=== PATIENT | male | born 1970 | race American Indian/Alaskan Native ===

== ENCOUNTER 2017-03-29 14:38 | Emergency (ER) | payer SELFPAY ==
--- NOTE | 2017-03-29 15:57 | XRay Report ---
LUMBOSACRAL SPINE, 3 VIEWS: History: Back pain, injury Findings: The vertebral bodies, disk spaces and posterior elements are intact. No compression deformity or malalignment. Mild multilevel degenerative disc disease is identified. The SI joints are symmetric and unremarkable. Impression: Mild lumbar spondylosis. No evidence for acute injury to the lumbar spine.
--- NOTE | 2017-03-29 15:57 | XRay Report ---
LEFT HAND, 3 views: History: Laceration. The bony architecture is intact. Bony alignment is normal. No soft tissue abnormalities are seen. The joint spaces appear preserved. IMPRESSION: Normal left hand.
[2017-03-29] MEDS ORDERED: MORPHINE IM ONE (16:37)
[2017-03-29] MEDS ORDERED: ZOFRAN ODT PO ONE (16:37)
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
[2017-03-29] MEDS ORDERED: DILAUDID IM ONE (17:49)
[2017-03-29] MEDS ORDERED: BOOSTRIX IM ONE (17:54)
[2017-03-29 18:14] LABS: Bilirubin,Urine NEG (Negative); Blood,Urine NEG (Negative); Ketones,Urine NEG (Negative); Leukocyte Esterase,Urine NEG (Negative); Nitrite,Urine NEG (Negative); Protein,Urine <15 mg/dL mg/dL (Negative); Urobilinogen,Urine < 2.0 mg/dL (<2.0)
[2017-03-29 18:35] VITALS: BP 137/71
== END 2017-03-29 18:46 | disposition home or self-care (01) ==
LOC: ED 14:38
DX: S61.213A Laceration without foreign body of left middle finger without damage to nail, initial encounter (principal); M54.5 Low back pain; F17.200 Nicotine dependence, unspecified, uncomplicated; V89.9XXA Person injured in unspecified vehicle accident, initial encounter; Y93.89 Activity, other specified; Y92.89 Other specified places as the place of occurrence of the external cause; Y99.8 Other external cause status
CPT/HCPCS: 12001; 72100; 73130; 81001; 90471; 90715; 96372; 99284; J1170; J2270; Q0162

== ENCOUNTER 2017-07-13 16:16 | Emergency (ER) | payer SELFPAY ==
[2017-07-13] MEDS ORDERED: DILAUDID IV ONE ×3 (17:03→20:45)
[2017-07-13] MEDS ORDERED: XYLOCAINE 1% 20 mL INFILTRATI ONE (17:03)
[2017-07-13] MEDS ORDERED: NACL 0.9% 500 ML 500 ML IV ONE (17:04)
--- NOTE | 2017-07-13 17:05 | Emergency Department Report ---
ED Lower Extremity HPI - General Chief Complaint: Extremity Injury, Lower Stated Complaint: ANKLE PAIN Time Seen by Provider: 07/13/17 16:45 Source: patient Mode of arrival: Ambulatory Limitations: No Limitations - History of Present Illness MD Complaint: foot injury - Related Data Previous Rx's Medication Instructions Recorded Last Taken Type Acetaminophen/Codeine [Tylenol #3] 1 tab PO Q6H PRN #12 tab 03/29/17 Unknown Rx methOCARBAMOL [Robaxin TAB] 500 mg PO Q6H PRN #15 tablet 03/29/17 Unknown Rx Allergies Allergy/AdvReac Type Severity Reaction Status Date / Time No Known Allergies Allergy Unverified 03/29/17 15:14 ED Review of Systems ROS: Stated complaint: ANKLE PAIN Other details as noted in HPI ED Past Medical Hx - Past Medical History Previous Medical History?: Yes Hx Hypertension: Yes Additional medical history: right kidney transplant-2012 - Surgical History Past Surgical History?: Yes Additional Surgical History: right kidney transplant-2012 - Social History Smoking Status: Current Every Day Smoker Substance Use Type: Alcohol, Marijuana - Medications Home Medications: Home Medications Medication Instructions Recorded Confirmed Last Taken Type Acetaminophen/Codeine [Tylenol #3] 1 tab PO Q6H PRN #12 tab 03/29/17 Unknown Rx methOCARBAMOL [Robaxin TAB] 500 mg PO Q6H PRN #15 tablet 03/29/17 Unknown Rx ED Physical Exam - General Limitations: No Limitations ED Course Vital Signs 07/13/17 16:20 Temperature 98 F Pulse Rate 107 H Respiratory 18 Rate Blood Pressure 136/101 O2 Sat by Pulse 99 Oximetry Critical care attestation.: If time is entered above; I have spent that time in minutes in the direct care of this critically ill patient, excluding procedure time. ED Disposition Condition: Stable
--- NOTE | 2017-07-13 17:19 | XRay Report ---
FINAL REPORT EXAM: XR ANKLE 2V RT HISTORY: right ANKLE PAIN TECHNIQUE: 2 views of the right ankle PRIORS: Right foot 07/13/2017 FINDINGS: There is nonspecific transverse linear density at the lateral malleolus visible only on the frontal view. This may be artifact from physis closure or reflect nondisplaced incomplete fracture. Chronic appearing smoothly marginated ossicles are noted adjacent to the distal tip of the medial malleolus. Intact mortise. No dislocation. Multifocal slight degenerative articular surface irregularity. Partially visualized distal metatarsal fractures in the 2nd and 3rd toes. IMPRESSION: Lateral malleolus lucency may be artifact from physis closure. Differential includes nondisplaced incomplete fracture. Correlate for tenderness Partially visualized 2nd and 3rd distal metatarsal fractures
--- NOTE | 2017-07-13 17:21 | XRay Report ---
FINAL REPORT EXAM: XR FOOT 3+V RT HISTORY: right foot/ankle injury TECHNIQUE: Four views right foot Comparison: None FINDINGS: Normal bony mineralization. There are comminuted fractures of the 2nd and 3rd metatarsal shafts. There is normal alignment of the forefoot with midfoot. There is degenerative change of the great toe IP joint. There is degenerative change of the dorsal midfoot. There is degenerative change of the tibiotalar joint space. IMPRESSION: Comminuted fractures 2nd and 3rd right metatarsal shafts. No other definite fracture or dislocation.
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
[2017-07-13] MEDS ORDERED: ZOFRAN IV ONE (17:35)
[2017-07-13] MEDS ORDERED: ceFAZolin 1 GM in NACL 0.9% 20 ML IV ONE (18:00)
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
[2017-07-13] MEDS ORDERED: NACL 0.9% 500 ML IR ONE (18:24)
[2017-07-13] MEDS ORDERED: NACL 0.9% IR ONE (18:32)
[2017-07-13] MEDS ORDERED: DILAUDID ONE (20:35)
[2017-07-13 23:21] VITALS: BP 124/78
== END 2017-07-13 23:20 | disposition other institution (70) ==
LOC: ED 16:16
DX: S91.331A Puncture wound without foreign body, right foot, initial encounter (principal); I10 Essential (primary) hypertension; F17.200 Nicotine dependence, unspecified, uncomplicated; W01.198A Fall on same level from slipping, tripping and stumbling with subsequent striking against other object, initial encounter; Y93.89 Activity, other specified; Y92.89 Other specified places as the place of occurrence of the external cause; Y99.8 Other external cause status
CPT/HCPCS: 73600; 73630; 96365; 96375; 99283; J0690; J1170; J2405; J7040